=== PATIENT | male | born 1990 | race Caucasian/White ===

== ENCOUNTER 2017-01-03 22:59 | Inpatient (IN) | payer SELFPAY ==
[~2017-01-03] VITALS: Ht 175.3 cm; Wt 72.0 kg
[2017-01-03 23:00] VITALS: BP 156/71; PULSE 111; RESP 16; TEMP 98.5; O2SAT 96
[2017-01-04] MEDS ORDERED: VANCOMYCIN INJ 1,000 MG in SODIUM CHLOR 0.9% 250 ML INJ 250 ML IV ONE (01:15)
[2017-01-04] MEDS ORDERED: LIDOCAINE HCL 2% 20 ML VIAL INFIL ONE (01:45)
--- NOTE | 2017-01-04 01:45 | RADRPT ---
EXAM DATE/TIME: 01/04/2017 01:27 [place] COMPARISON: No previous studies available for comparison. INDICATIONS : Right wrist swelling x 2 days. No known injury. MEDICAL HISTORY : None. SURGICAL HISTORY : None. ENCOUNTER: Initial ACUITY: 2 days PAIN SCORE: 8/10 LOCATION: Right Wrist FINDINGS: 3 views right wrist. Marked lateral soft tissue swelling at the level the wrist. No evidence of fract ure. Alignment within normal limits. No focal bone erosion. CONCLUSION: Marked lateral soft tissue swelling at the wrist. Steven Moon MD on January 04, 2017 at 1:42 Board Certified Radiologist. This report was verified electronically.
--- NOTE | 2017-01-04 02:31 | PD ---
HPI Chief Complaint: Injury Time Seen by Provider: 01:06 Travel History International Travel<30 days: No Contact w/Intl Traveler<30days: No Traveled to known affect area: No History of Present Illness HPI pt has right hand wrist abscess he reports with from a palm fraund falling on his wrist now large painful abscess reports it is all from a tree injury and he works on trees for a living. denies injecting into area PFSH Past Medical History Medical History: Denies Significant Hx Past Surgical History Genitourinary Surgery: Yes Social History Alcohol Use: Yes (RARE) Tobacco Use: Yes (1 PPD) Substance Use: Yes (SUBOXONE) Allergies-Medications (Allergen,Severity, Reaction): Coded Allergies: No Known Allergies (Unverified , 01/03/17) Reported Meds & Prescriptions Reported Meds & Active Scripts Active Reported [Suboxone] Unknown Dose PO DAILY Review of Systems Except as stated in HPI: all other systems reviewed are Neg Skin: Positive Other (abscess r ight wrist) Physical Exam Narrative GENERAL: sleepy and mildly disheveled SKIN: Warm and dry.abscess red purulent indurated to right forearm radial wrist area lateral aspect HEAD: Atraumatic. Normocephalic. EYES: Pupils equal and round. No scleral icterus. No injection or drainage. ENT: No nasal bleeding or discharge. Mucous membranes pink and moist. NECK: Trachea midline. No JVD. CARDIOVASCULAR: Regular rate and rhythm. RESPIRATORY: No accessory muscle use. Clear to auscultation. Breath sounds equal bilaterally. GASTROINTESTINAL: Abdomen soft, non-tender, nondistended. Hepatic and splenic margins not palpable. MUSCULOSKELETAL: Extremities without clubbing, cyanosis, or edema. No obvious deformities. NEUROLOGICAL: Awake and alert. No obvious cranial nerve deficits. Motor grossly within normal limits. Five out of 5 muscle strength in the arms and legs. Normal speech. PSYCHIATRIC: Appropriate mood and affect; insight and judgment normal. WRIST exam right wrist 3 cm abscess erythema and tender oozing out of little pustules ontop of larger abscess Data Data Last Documented VS Vital Signs Date Time Temp Pulse Resp B/P (MAP) Pulse Ox O2 Delivery O2 Flow Rate FiO2 01/04/17 04:00 67 16 115/52 (73) 97 Room Air 01/03/17 23:00 98.5 Orders Orders Wrist, Complete ([id number]) (01/04/17 ) Vancomycin Inj (Vancomycin Inj) (01/04/17 01:15) Lidocaine 2% Inj (Xylocaine 2% Inj) (01/04/17 01:45) Complete Blood Count With Diff (01/04/17 03:14) Blood Culture (01/04/17 03:14) Wound Culture And Gram Stain (01/04/17 04:06) Basic Metabolic Panel (Bmp) (01/04/17 04:55) Admit Order (Ed Use Only) (01/04/17 04:54) Admit To Inpatient (01/04/17 ) Vital Signs (Adult) Q4H (01/04/17 04:53) Activity Oob Ad Lisa (01/04/17 04:53) Sodium Chlor 0.9% 1000 Ml Inj (Ns 1000 M (01/04/17 04:53) Sodium Chloride 0.9% Flush (Ns Flush) (01/04/17 05:00) Sodium Chloride 0.9% Flush (Ns Flush) (01/04/17 09:00) Acetaminophen (Tylenol) (01/04/17 05:00) Ondansetron Inj (Zofran Inj) (01/04/17 05:00) Naloxone Inj (Narcan Inj) (01/04/17 05:00) Inpatient Certification (01/04/17 ) Vancomycin Consult Pharmacy (Vancomycin (01/04/17 05:00) Labs Laboratory Tests Test 01/04/17 04:00 White Blood Count 10.3 TH/MM3 Red Blood Count 3.62 MIL/MM3 Hemoglobin 11.0 GM/DL Hematocrit 32.0 % Mean Corpuscular Volume 88.3 FL Mean Corpuscular Hemoglobin 30.4 PG Mean Corpuscular Hemoglobin Concent 34.5 % Red Cell Distribution Width 14.2 % Platelet Count 273 TH/MM3 Mean Platelet Volume 7.0 FL Neutrophils (%) (Auto) 75.6 % Lymphocytes (%) (Auto) 13.7 % Monocytes (%) (Auto) 8.4 % Eosinophils (%) (Auto) 1.7 % Basophils (%) (Auto) 0.6 % Neutrophils # (Auto) 7.8 TH/MM3 Lymphocytes # (Auto) 1.4 TH/MM3 Monocytes # (Auto) 0.9 TH/MM3 Eosinophils # (Auto) 0.2 TH/MM3 Basophils # (Auto) 0.1 TH/MM3 CBC Comment DIFF FINAL Differential Comment MDM Medical Decision Making Medical Screen Exam Complete: Yes Emergency Medical Condition: Yes Differential Diagnosis abscess right hand at carpal thenar junction Narrative Course Vanco and I and D and blood cultures and CBC reviewed and Pt admitted to Dr Evans for conituned IV antibx Procedures Procedure Narrative i did an I and D on this pt right wrist 4 cm abscess with much pus expressed and and wick placed . Area preped with betadine and sterile technique used Lido 2% used and 2 cc infiltrated and 11 blade used to make an incision 3mm and much purulent material expressed. pt tolerated procedure well and then dressed and gauze and zach applied and admitted for continued Vanco IV to assure hand heals and no progression Diagnosis Primary Impression: Abscess Admitting Information Admitting Physician Requests: Admit Condition: Raymundo Ray MD Jan 04, 2017 02:31
[2017-01-04 04:00] VITALS: BP 115/52; PULSE 67; RESP 16; O2SAT 97
[2017-01-04 04:18] LABS: AUTOMATED NEUTROPHIL # 7.8 TH/MM3 (1.8-7.7); BASOPHIL # 0.1 TH/MM3 (0-0.2); BASOPHIL % 0.6 % (0.0-2.0); EOSINOPHIL # 0.2 TH/MM3 (0-0.4); EOSINOPHIL % 1.7 % (0.0-4.0); LYMPH % 13.7 % (9.0-44.0); LYMPHOCYTE # 1.4 TH/MM3 (1.0-4.8); MEAN CELL VOLUME 88.3 FL (80.0-100.0); MEAN CORPUSCULAR HEMOGLOBIN 30.4 PG (27.0-34.0); MEAN CORPUSCULAR HGB CONC 34.5 % (32.0-36.0); MONO % 8.4 % (0.0-8.0); MONOCYTE # 0.9 TH/MM3 (0-0.9); NEUT % 75.6 % (16.0-70.0); PLATELET COUNT 273 TH/MM3 (150-450); RED BLOOD COUNT 3.62 MIL/MM3 (4.50-5.90); RED CELL DISTRIBUTION WIDTH 14.2 % (11.6-17.2); WHITE BLOOD COUNT 10.3 TH/MM3 (4.0-11.0)
[2017-01-04] MEDS ORDERED: SODIUM CHLOR 0.9% 1000 ML INJ 1,000 ML IV SCH (04:53)
[2017-01-04] MEDS ORDERED: ACETAMINOPHEN 325 MG TAB PO PRN (05:00)
[2017-01-04] MEDS ORDERED: NALOXONE HCL 0.4 MG/ML AMP IV PUSH PRN (05:00)
[2017-01-04] MEDS ORDERED: SODIUM CHLORIDE 0.9% FLUSH 10 ML FLUSH IV FLUSH PRN (05:00)
[2017-01-04] MEDS ORDERED: ACETAMINOPHEN/HYDROcodone 325 MG/5 MG TAB PO PRN (05:00)
[2017-01-04] MEDS ORDERED: Vancomycin Consult Pharmacy 1 EA OTHER SCH (05:00)
[2017-01-04] MEDS ORDERED: ONDANSETRON HCL 4 MG/2 ML VIAL IVP PRN (05:00)
[2017-01-04] MEDS ORDERED: SUBOXONE PO (05:58)
[2017-01-04 06:30] LABS: BICARBONATE 27.5 MEQ/L (21.0-32.0); CALCIUM 8.8 MG/DL (8.5-10.1); CREATININE 0.66 MG/DL (0.60-1.30)
[2017-01-04] MEDS ORDERED: SODIUM CHLORIDE 0.9% FLUSH 10 ML FLUSH IV FLUSH SCH (09:00)
[2017-01-04 09:16] VITALS: BP 105/52; PULSE 60; RESP 18; TEMP 98.1; O2SAT 97
[2017-01-04] MEDS ORDERED: VANCOMYCIN 1,000 MG/NS 250 ML IV SCH ×2 (10:00)
--- NOTE | 2017-01-04 10:09 | PD.AMA ---
Against Medical Advice Note Diagnosis: (1) Abscess Discharge Disposition: Against Medical Advice Pt Condition on Discharge: Stable Recommended Treatment Course stay in hospital for possible I&D and IV antibiotics treatment. But patient refused despite the benefits. He initially stated he had to be in work but also stated he is missing work already. I told patient since he is already missing work can he call in to his boss to let them no. He did not want to answer me and looked away. I gave extension educated to patient that if this infection is not treated properly it can spread quickly and can even lead to . He stated he understood and that he still is going to leave. He asked me to take his IVs out. AMA Statement Patient Wild Marrero has decided to leave the hospital against medical advice. This patient has the capacity to refuse care and understands the risks of leaving, including permanent disability and/or , and has had an opportunity to ask questions about his condition. The patient has been informed that he may return for care at any time, and follow up has been arranged/ advised. Alysha Hilario MD Jan 04, 2017 10:09
[2017-01-05] MEDS ORDERED: PHARMACY ORDERED LAB ONE (01:45)
== END 2017-01-04 09:50 | disposition left against medical advice (07) | DRG 603 ==
LOC: NEPC 22:59 → NEDA 01-04 04:57 → N05A 01-04 06:00
PROVIDERS: ADMIT Family Medicine; ATTEND Family Medicine
PROC: 0H9DXZZ Drainage of Right Lower Arm Skin, External Approach (ICD-10-PCS; principal; 2017-01-04)
DX: L02.413 Cutaneous abscess of right upper limb (principal); Z72.0 Tobacco use
CPT/HCPCS: 73110; 80048; 85025; 86403; 87040; 87070; 87147; 87186; 87205; J3370; J7030; J7050

== ENCOUNTER 2017-07-28 18:07 | Emergency (ER) | payer SELFPAY ==
[~2017-07-28] VITALS: Ht 172.7 cm; Wt 72.0 kg
[~2017-07-28 18:07] MED LIST: SUBOXONE PO
[2017-07-28 18:55] VITALS: BP 115/57; PULSE 72; RESP 16; TEMP 97.9; O2SAT 95
--- NOTE | 2017-07-28 19:07 | PD ---
HPI Chief Complaint: Skin Problem Time Seen by Provider: 19:00 Travel History International Travel<30 days: No Contact w/Intl Traveler<30days: No Traveled to known affect area: No History of Present Illness HPI 27-year-old male with question of abscess versus cellulitis to the left upper lip. Patient states he fell off the couch developed a rug burn to this area a couple of weeks ago, which he continues to pick and bother than he had a small abscess to the area which drained yesterday. He states he still has some localized swelling and he is here to have it checked. He has mild pain to the area. He has no history of MRSA in the past. He has no fever, chills, or other symptoms. Patient has no other acute complaints. He has no known drug allergies. PFSH Past Surgical History Genitourinary Surgery: Yes Social History Alcohol Use: Yes (RARE) Tobacco Use: Yes (1 PPD) Substance Use: Yes (SUBOXONE) Allergies-Medications (Allergen,Severity, Reaction): Coded Allergies: No Known Allergies (Unverified , 07/28/17) Reported Meds & Prescriptions Reported Meds & Active Scripts Active Reported [Suboxone] Unknown Dose PO DAILY Review of Systems Except as stated in HPI: all other systems reviewed are Neg General / Constitutional: No: Fever Eyes: No: Visual changes HENT: No: Headaches Cardiovascular: No: Chest Pain or Discomfort Respiratory: No: Shortness of Breath Gastrointestinal: No: Abdominal Pain Genitourinary: No: Dysuria Musculoskeletal: No: Pain Skin: Positive Lesions, No Rash Neurologic: No: Weakness Psychiatric: No: Depression Endocrine: No: Polydipsia Hematologic/Lymphatic: No: Easy Bruising Physical Exam Narrative GENERAL: Patient appears in no acute distress. SKIN: Warm and dry. Patient has what appears to be impetigo to the left upper lip with localized swelling, erythema, and induration. There is does not appear to be a large abscess present. There is no spontaneous drainage at this time. The area is crusted with pham appearing scab. HEAD: Atraumatic. Normocephalic. EYES: Pupils equal and round. No scleral icterus. No injection or drainage. ENT: No nasal bleeding or discharge. Mucous membranes pink and moist. No dental injury. Pharynx is clear. Airway is patent. NECK: Trachea midline. Supple and nontender. CARDIOVASCULAR: Regular rate and rhythm. RESPIRATORY: No accessory muscle use. Clear to auscultation. Breath sounds equal bilaterally. MUSCULOSKELETAL: Extremities without clubbing, cyanosis, or edema. No obvious deformities. NEUROLOGICAL: Awake and alert. No obvious cranial nerve deficits. Motor grossly within normal limits. Five out of 5 muscle strength in the arms and legs. Normal speech. PSYCHIATRIC: Appropriate mood and affect; insight and judgment normal. Data Data Last Documented VS Vital Signs Date Time Temp Pulse Resp B/P (MAP) Pulse Ox O2 Delivery O2 Flow Rate FiO2 07/28/17 18:55 97.9 72 16 115/57 (76) 95 MDM Medical Decision Making Medical Screen Exam Complete: Yes Emergency Medical Condition: Yes Differential Diagnosis Cellulitis. Impetigo. MRSA. Narrative Course Patient was treated with Bactrim DS twice daily 7 days. Patient also given Bactroban ointment to be applied to the affected areas twice daily for the next week. Patient follow-up as needed. Diagnosis Primary Impression: Cellulitis of face Additional Impression: Impetigo Patient Instructions: General Instructions, Impetigo (ED) Additional Instructions: Patient was treated with Bactrim DS twice daily 7 days. Patient also given Bactroban ointment to be applied to the affected areas twice daily for the next week. Patient follow-up as needed. Med/Other Pt SpecificInfo: Prescription(s) given Disposition: 01 DISCHARGE HOME Condition: Stable Dewayne Ha July 28, 2017 19:07
[2017-07-28] MEDS ORDERED: BACT800T5 PO (19:08)
[2017-07-28] MEDS ORDERED: MUPI2%T TOPICAL (19:08)
== END 2017-07-28 19:36 | disposition home or self-care (01) ==
LOC: NEPK 18:07
DX: L03.211 Cellulitis of face (principal); L01.00 Impetigo, unspecified; F17.200 Nicotine dependence, unspecified, uncomplicated
CPT/HCPCS: 99283